=== PATIENT | male | born 1985 | race Caucasian/White ===

== ENCOUNTER 2025-07-25 20:39 | Emergency (ER) | payer OTHER, SELFPAY ==
[2025-07-25 20:45] VITALS: BP 168/106
[2025-07-25 22:55] VITALS: BMI 22.4
[2025-07-25 22:58] VITALS: BP 147/94
[2025-07-26 01:10] VITALS: BP 139/81
--- NOTE | 2025-07-26 03:11 | ED.GENMED ---
History of Present Illness
General
Chief Complaint: Throat Problem
Source: patient
Time Seen by Provider: 07/26/25 02:31
History of Present Illness
History of Present Illness:
40-year-old male presents to the emergency room complaining of sore throat. Patient was sent to the emergency room from an urgent care. Patient states that he began having pain on the left side of his throat initially which has migrated to the
right. The left side actually feels better but the right continues to get worse. He feels like the back of serve swollen. He makes it difficult to swallow at times. Subjective fever. No nausea vomiting. Patient denies any significant medical
history. He does smoke.
Past History
Past History
ED Past Medical History: None
ED Past Surgical History: None
Social History
Tobacco: Smoker
Drug: None
Phy Exam
Physical Exam
Physical Exam:
General: Awake, Alert, Oriented X3. No acute distress.
Vitals: unremarkable
Head: Atraumatic
Eyes: Pupils equal, EOMI
Throat: Airway intact, significant swelling noted right peritonsillar region with effacement of the uvula. No stridor.
Neck: Trachea midline
Lungs: Clear and equal b/l
Heart: Regular rate, no murmurs
Abd: Soft, Nontender, No pulsatile mass
Neuro: Nonfocal
Skin: Warm, dry, no rash
Extremities: pulses equal b/l, no edema
Course
Orders/Labs/Results
Orders:
Orders
07/25/25 20:40
Electrocardiogram (*1) Urgent
Reason for Study: Shortness of Breath
EKG- Treatment ONCE
07/26/25 03:12
Ibuprofen [Motrin] 600 mg PO NOW STA
07/26/25 03:21
Penicillin V Potassium [Pen Vk] 500 mg PO NOW STA
Vital Signs
Initial and Last Documented VS:
Initial Vital Signs
Temp Pulse Resp BP Pulse Ox
98.7 F 108 20 168/106 98
07/25/25 20:45 07/25/25 20:45 07/25/25 20:45 07/25/25 20:45 07/25/25 20:45
Last Documented Vital Signs
Temp Pulse Resp BP Pulse Ox
98.7 F 101 18 167/95 98
07/25/25 20:45 07/26/25 03:37 07/26/25 03:37 07/26/25 03:37 07/26/25 03:37
Procedures
Incision/Drainage/Joint Aspiration
Right:
Anethesia: 1% Lidocaine with Epi and other (hurricane spray)
Type of procedure: aspiration
Nature of site: abscess
Description of abscess: less than 3cm (2.5)
Loculations broken up: No
Fluid description: purulent
Additional information:
right peritonsilar abscess drained using an 18-gauge needle. The needle cover was cut to allow about 1 cm of needle be exposed. Right tonsillar region sprayed with Cetacaine spray and then infiltrated about 2 cc of lidocaine with epi. First spot
aspirated was quite superior. I went more inferiorly and laterally and did successfully aspirate the abscess with about 2.5 cc of pus obtained.
MDM/Problems Addressed
Differential Diagnosis Includes:
Tonsillitis, peritonsillar abscess, pharyngitis
MDM/Problems Addressed:
Patient presents with significant pain and swelling right throat. Peritonsillar abscess drained. Will start the patient on penicillin. Have him follow-up with ENT, Dr. Sesay
*Pulse Oximetry
SaO2: 98
Oxygen Mode of Delivery: Room air
Patient hypoxic: no
*Critical Care Note
Total Time (30-74mins, 75-104mins- exclusive of procedures): Not Applicable
ED Attending Note
-
Portions of this chart may have been created with voice recognition software.� Occasional wrong word or��sound alike� substitutions may have occurred due to the inherent limitations of voice recognition software.
Discharge Plan
Departure
Patient Disposition: Home (Routine Discharge)
Date of Disposition: 07/26/25
Time of Disposition: 03:14
Patient with high blood pressure during this ER visit?: Yes
Condition: Good
Discharge Problem:
Peritoneal abscess
Instructions: Peritonsillar Abscess, Adult (DC)
Prescriptions:
New
penicillin V potassium 500 mg tablet
500 mg PO TID Qty: 30 0RF
Referrals:
Sen Samano MD [Active, Otology]
NONE,* [Family Provider, Internal Medicine]
Interventions
Interventions:
*General Assessment Last Done: 07/25/25 22:55
*Neglect/Abuse Screening Last Done: 07/25/25 20:45
*ED COVID-19 Vaccine History Last Done: 07/25/25 22:55
*ED Influenza Vaccine History Last Done: 07/25/25 22:55
[facility] Risk Assessment Tool Last Done: 07/25/25 22:58
*Risk Screen - Suicide (C-SSRS) Last Done: 07/25/25 22:58
*Nursing Disposition Last Done: 07/26/25 03:27
ED-EENT Assessment Last Done: 07/25/25 22:58
ED- Pulmonary Assessment Last Done: 07/25/25 22:58
Discharge Date and Time
Discharge Date/Time: 07/26/25 04:29
Print Language: OCCITAN
[2025-07-26] MEDS: MOTRIN 600 MG PO (03:26)
[2025-07-26 03:37] VITALS: BP 167/95
[2025-07-26] MEDS: PEN VK 500 MG PO (03:45)
== END 2025-07-26 04:29 | disposition home or self-care (01) ==
LOC: EMR 20:39
PROVIDERS: EMERGENCY PHYSICIAN Emergency Medicine
DX: J36 Peritonsillar abscess (principal); F17.200 Nicotine dependence, unspecified, uncomplicated
CPT/HCPCS: 42700; 99283; 93005